=== PATIENT | female | born 1955 | race African-American/Black ===

== ENCOUNTER 2016-12-05 09:07 | Emergency (ER) | payer BC, OTHER ==
[~2016-12-05] VITALS: Ht 167.6 cm; Wt 134.6 kg
[~2016-12-05 09:07] MED LIST: BACT800T5 PO; CEPH500C3 PO; COLC1TAB7 PO
[2016-12-05 09:09] VITALS: BP 171/79; PULSE 68; RESP 18; TEMP 98.9; O2SAT 98
[2016-12-05] MEDS ORDERED: SODIUM CHLOR 0.9% 1000 ML INJ 1,000 ML IV SCH (09:21)
[2016-12-05 09:26] VITALS: O2SAT 98
[2016-12-05] MEDS ORDERED: DICYCLOMINE HCL 10 MG CAP PO ONE (09:30)
[2016-12-05] MEDS ORDERED: ONDANSETRON HCL 4 MG/2 ML VIAL IVP ONE (09:30)
[2016-12-05] MEDS ORDERED: SODIUM CHLOR 0.9% 1000 ML INJ 1,000 ML IV ONE (09:30)
[2016-12-05] MEDS ORDERED: SODIUM CHLORIDE 0.9% FLUSH 10 ML FLUSH IV FLUSH PRN (09:30)
[2016-12-05] MEDS ORDERED: FAMOTIDINE 20 MG/2 ML VIAL IV PUSH ONE (09:30)
--- NOTE | 2016-12-05 09:31 | PD ---
HPI Chief Complaint: GI Complaint Time Seen by Provider: 09:14 Travel History International Travel<30 days: No Contact w/Intl Traveler<30days: No Traveled to known affect area: No History of Present Illness HPI Patient 61-year-old female who presents to emergency room with complaints of nausea, vomiting and diarrhea with abdominal pain since Sunday night. She reports that she went out to dinner Sunday, reports that after dinner, she began to feel "bad." Reports that she has been feeling nauseous and has been vomiting and having diarrhea since Sunday. Reports that she has not been unable to keep anything down. Patient reports that she feels dehydrated and weak. Denies fever/chills. Denies any sick contacts. Denies any recent travels or trips. Denies taking any recent antibiotics. Denies dysuria, urinary urgency or frequency. No chest pain or shortness of breath. PFSH Past Medical History High Cholesterol: Yes Hypertension: Yes ?: Not Past Surgical History Other Surgery: Yes (fibroid resection) Family History Family History: Negative Social History Alcohol Use: No Tobacco Use: No Substance Use: No Allergies-Medications (Allergen,Severity, Reaction): Coded Allergies: codeine (Unverified Adverse Reaction, Intermediate, NAUSEA, 12/05/16) Reported Meds & Prescriptions Reported Meds & Active Scripts Active Zofran (Ondansetron HCl) 4 Mg Tab 4 Mg PO Q6HR PRN Reported Lovastatin 40 Mg Tab 40 Mg PO DAILY Triamterene-Hydrochlorothiazide 37.5-25 Mg Tab 1 Tab PO DAILY Review of Systems General / Constitutional: No: Fever, Chills Eyes: No: Visual changes HENT: No: Headaches Cardiovascular: No: Chest Pain or Discomfort, Palpitations, Irregular Rhythm, Tachycardia, Diaphoresis Respiratory: No: Cough, Shortness of Breath Gastrointestinal: Positive: Nausea, Vomiting, Diarrhea, Abdominal Pain, No: Constipation Genitourinary: No: Urgency, Dysuria Musculoskeletal: No: Pain Skin: No Rash Neurologic: No: Weakness Psychiatric: No: Depression Endocrine: No: Polydipsia Hematologic/Lymphatic: No: Easy Bruising Physical Exam Narrative GENERAL: Mild distress SKIN: Focused skin assessment warm/dry. HEAD: Atraumatic. Normocephalic. EYES: No injection or drainage. ENT: No nasal bleeding or discharge. Mucous membranes pink and tachy. NECK: Trachea midline. No JVD. CARDIOVASCULAR: Regular rate and rhythm. No murmur appreciated. RESPIRATORY: No accessory muscle use. Clear to auscultation. Breath sounds equal bilaterally. GASTROINTESTINAL: Abdomen soft, non-tender, nondistended. MUSCULOSKELETAL: No obvious deformities. No clubbing. No cyanosis. No edema. NEUROLOGICAL: Awake and alert. No obvious cranial nerve deficits. Motor grossly within normal limits. Normal speech. PSYCHIATRIC: Appropriate mood and affect; insight and judgment normal. Data Data Last Documented VS Vital Signs Date Time Temp Pulse Resp B/P (MAP) Pulse Ox O2 Delivery O2 Flow Rate FiO2 12/05/16 10:52 62 18 155/69 (97) 99 Room Air 12/05/16 09:09 98.9 Orders Orders Complete Blood Count With Diff (12/05/16:) Comprehensive Metabolic Panel (12/05/16:) Lipase (12/05/16:) Prothrombin Time / Inr (Pt) (12/05/16:) Act Partial Throm Time (Ptt) (12/05/16:) Urinalysis - C+S If Indicated (12/05/16:21) Ct Abd/Pel W/O Iv Contrast (12/05/16:21) Iv Access Insert/Monitor (12/05/16:21) Oximetry (12/05/16:) NPO (12/05/16:) Ondansetron Inj (Zofran Inj) (12/05/16 09:30) Sodium Chlor 0.9% 1000 Ml Inj (Ns 1000 M (12/05/16 09:21) Sodium Chloride 0.9% Flush (Ns Flush) (12/05/16:30) Famotidine Inj (Pepcid Inj) (12/05/16 09:30) Dicyclomine (Bentyl) (12/05/16 09:30) Sodium Chlor 0.9% 1000 Ml Inj (Ns 1000 M (12/05/16 09:30) Labs Laboratory Tests Test 12/05/16 10:11 White Blood Count 9.2 TH/MM3 Red Blood Count 5.28 MIL/MM3 Hemoglobin 14.0 GM/DL Hematocrit 42.4 % Mean Corpuscular Volume 80.4 FL Mean Corpuscular Hemoglobin 26.5 PG Mean Corpuscular Hemoglobin Concent 33.0 % Red Cell Distribution Width 14.0 % Platelet Count 252 TH/MM3 Mean Platelet Volume 9.6 FL Neutrophils (%) (Auto) 75.1 % Lymphocytes (%) (Auto) 14.6 % Monocytes (%) (Auto) 8.3 % Eosinophils (%) (Auto) 0.3 % Basophils (%) (Auto) 1.7 % Neutrophils # (Auto) 6.9 TH/MM3 Lymphocytes # (Auto) 1.3 TH/MM3 Monocytes # (Auto) 0.8 TH/MM3 Eosinophils # (Auto) 0.0 TH/MM3 Basophils # (Auto) 0.2 TH/MM3 CBC Comment DIFF FINAL Differential Comment Prothrombin Time 11.1 SEC Prothromb Time International Ratio 1.0 RATIO Activated Partial Thromboplast Time 27.5 SEC Urine Collection Type CLEAN CATCH Urine Color YELLOW Urine Turbidity CLEAR Urine pH 6.0 Urine Specific [place] 1.028 Urine Protein 100 mg/dL Urine Glucose (UA) NEG mg/dL Urine Ketones TRACE mg/dL Urine Occult Blood LARGE Urine Nitrite NEG Urine Bilirubin NEG Urine Leukocyte Esterase NEG Urine RBC 25-49 /hpf Urine WBC 3-5 /hpf Urine Squamous Epithelial Cells > 8 /hpf Urine Bacteria FEW /hpf Urine Mucus FEW /lpf Microscopic Urinalysis Comment CULT NOT INDICATED Urine Collection Time 10:11 Blood Urea Nitrogen 11 MG/DL Creatinine 0.79 MG/DL Random Glucose 120 MG/DL Total Protein 8.9 GM/DL Albumin 3.2 GM/DL Calcium Level 9.4 MG/DL Alkaline Phosphatase 108 U/L Aspartate Amino Transf (AST/SGOT) 29 U/L Alanine Aminotransferase (ALT/SGPT) 22 U/L Total Bilirubin 0.8 MG/DL Sodium Level 133 MEQ/L Potassium Level 4.4 MEQ/L Chloride Level 97 MEQ/L Carbon Dioxide Level 27.8 MEQ/L Anion Gap 8 MEQ/L Estimat Glomerular Filtration Rate 89 ML/MIN Lipase 125 U/L [facility] Medical Decision Making Medical Screen Exam Complete: Yes Emergency Medical Condition: Yes Medical Record Reviewed: Yes Interpretation(s) Vital Signs Date Time Temp Pulse Resp B/P (MAP) Pulse Ox O2 Delivery O2 Flow Rate FiO2 12/05/16 09:09 98.9 68 18 171/79 (109 98 Differential Diagnosis Differential includes gastritis, gastroenteritis, appendicitis, cholecystitis, electrolyte abnormality Narrative Course 61-year-old female who presents to emergency with complaints of abdominal pain nausea, vomiting and diarrhea since Sunday (4 days). Patient has not been able to keep down any fluids or food for the past 4 days, reports feeling generalized weakness. Vital Signs Date Time Temp Pulse Resp B/P (MAP) Pulse Ox O2 Delivery O2 Flow Rate FiO2 12/05/16 09:09 98.9 68 18 171/79 (109) 98 An IV line was established, IVF as well as antiemetics ordered. CBC, CMP, LFT' s as well as Ct of abdomen/pelvis ordered. Plan to monitor on a international affairs vice president Laboratory Tests Test 12/05/16 10:11 White Blood Count 9.2 TH/MM3 (4.0-11.0) Red Blood Count 5.28 MIL/MM3 (4.00-5.30) Hemoglobin 14.0 GM/DL (11.6-15.3) Hematocrit 42.4 % (35.0-46.0) Mean Corpuscular Volume 80.4 FL (80.0-100.0) Mean Corpuscular Hemoglobin 26.5 PG (27.0-34.0) Mean Corpuscular Hemoglobin Concent 33.0 % (32.0-36.0) Red Cell Distribution Width 14.0 % (11.6-17.2) Platelet Count 252 TH/MM3 (150-450) Mean Platelet Volume 9.6 FL (7.0-11.0) Neutrophils (%) (Auto) 75.1 % (16.0-70.0) Lymphocytes (%) (Auto) 14.6 % (9.0-44.0) Monocytes (%) (Auto) 8.3 % (0.0-8.0) Eosinophils (%) (Auto) 0.3 % (0.0-4.0) Basophils (%) (Auto) 1.7 % (0.0-2.0) Neutrophils # (Auto) 6.9 TH/MM3 (1.8-7.7) Lymphocytes # (Auto) 1.3 TH/MM3 (1.0-4.8) Monocytes # (Auto) 0.8 TH/MM3 (0-0.9) Eosinophils # (Auto) 0.0 TH/MM3 (0-0.4) Basophils # (Auto) 0.2 TH/MM3 (0-0.2) CBC Comment DIFF FINAL Differential Comment Prothrombin Time 11.1 SEC (9.8-11.6) Prothromb Time International Ratio 1.0 RATIO Activated Partial Thromboplast Time 27.5 SEC (24.3-30.1) Urine Collection Type CLEAN CATCH Urine Color YELLOW (YELLW/STRAW) Urine Turbidity CLEAR (CLEAR) Urine pH 6.0 (5.0-8.5) Urine Specific [place] 1.028 (1.002-1.035) Urine Protein 100 mg/dL (NEG-TRACE) Urine Glucose (UA) NEG mg/dL (NEG) Urine Ketones TRACE mg/dL (NEG) Urine Occult Blood LARGE (NEG) Urine Nitrite NEG (NEG) Urine Bilirubin NEG (NEG) Urine Leukocyte Esterase NEG (NEG) Urine RBC 25-49 /hpf (0-3) Urine WBC 3-5 /hpf (0-5) Urine Squamous Epithelial Cells > 8 /hpf (0-5) Urine Bacteria FEW /hpf (NONE) Urine Mucus FEW /lpf (OCC) Microscopic Urinalysis Comment CULT NOT INDICATED Urine Collection Time 10:11 Blood Urea Nitrogen 11 MG/DL (7-18) Creatinine 0.79 MG/DL (0.50-1.00) Random Glucose 120 MG/DL (74-106) Total Protein 8.9 GM/DL (6.4-8.2) Albumin 3.2 GM/DL (3.4-5.0) Calcium Level 9.4 MG/DL (8.5-10.1) Alkaline Phosphatase 108 U/L (45-117) Aspartate Amino Transf (AST/SGOT) 29 U/L (15-37) Alanine Aminotransferase (ALT/SGPT) 22 U/L (10-53) Total Bilirubin 0.8 MG/DL (0.2-1.0) Sodium Level 133 MEQ/L (136-145) Potassium Level 4.4 MEQ/L (3.5-5.1) Chloride Level 97 MEQ/L (98-107) Carbon Dioxide Level 27.8 MEQ/L (21.0-32.0) Anion Gap 8 MEQ/L (5-15) Estimat Glomerular Filtration Rate 89 ML/MIN (>89) Lipase 125 U/L (73-393) CT of the abdomen pelvis with no acute findings. A copy of her ct report was given to her as she will need to follow up with all incidental findings. Patient was hydrated with IV fluids, was given antiemetics, patient is feeling better at this time. Reports "I feel better than I have in days." Abdomen is soft, nt/nd, no peritoneal signs. Plan with most likely gastroenteritis. Discussed need for hydration. Will write script for antiemetics. Patient will follow-up with primary care doctor, signs and symptoms of acute abdomen was reviewed patient in detail. She will return to emergency room as needed. Patient thankful for care. Diagnosis Primary Impression: Nausea vomiting and diarrhea Additional Impression: Abdominal pain Patient Instructions: General Instructions Departure Forms: Tests/Procedures, Work Release Enter return to work date: Dec 07, 2016 Additional Instructions: Please follow up with your primary care doctor Drink plenty of fluids Return to ER if symptoms worsen or progress Return to ER as needed Please bring a copy of your radiology report to your doctor's office for follow up. Med/Other Pt SpecificInfo: Prescription(s) given Scripts Dicyclomine (Bentyl) 10 Mg Cap 10 MG PO TID Y for Bowel Management for 7 Days, CAP 0 Refills Prov: Cathy Fisher DO 12/05/16 Ondansetron (Zofran) 4 Mg Tab 4 MG PO Q6HR Y for NAUSEA OR VOMITING, #20 TAB 0 Refills Prov: Cathy Fisher DO 12/05/16 Disposition: 01 DISCHARGE HOME Condition: Stable Cathy Fisher DO Dec 05, 2016 09:31
[2016-12-05] MEDS ORDERED: TRIA37.5 PO (09:33)
[2016-12-05] MEDS ORDERED: LOVA40TA PO (09:33)
[2016-12-05 10:22] LABS: BLOOD, URINE LARGE (NEG); GLUCOSE,URINE NEG (NEG); KETONE, URINE TRACE mg/dL (NEG); NITRITE,URINE NEG (NEG)
[2016-12-05 10:23] LABS: AUTOMATED NEUTROPHIL # 6.9 TH/MM3 (1.8-7.7); BASOPHIL # 0.2 TH/MM3 (0-0.2); BASOPHIL % 1.7 % (0.0-2.0); EOSINOPHIL % 0.3 % (0.0-4.0); HEMATOCRIT 42.4 % (35.0-46.0); HEMO FLAGS DIFF FINAL; LYMPH % 14.6 % (9.0-44.0); LYMPHOCYTE # 1.3 TH/MM3 (1.0-4.8); MEAN CELL VOLUME 80.4 FL (80.0-100.0); MEAN CORPUSCULAR HEMOGLOBIN 26.5 PG (27.0-34.0); MONO % 8.3 % (0.0-8.0); NEUT % 75.1 % (16.0-70.0); PLATELET COUNT 252 TH/MM3 (150-450); RED BLOOD COUNT 5.28 MIL/MM3 (4.00-5.30); WHITE BLOOD COUNT 9.2 TH/MM3 (4.0-11.0)
[2016-12-05 10:27] LABS: METHOD OF COLLECTION CLEAN CATCH; MUCUS URINE FEW /lpf (OCC); URINE COLOR YELLOW (YELLW/STRAW)
[2016-12-05 10:28] LABS: BACTERIA, URINE FEW /hpf; COMMENT (UR) CULT NOT INDICATED; CULTURE IF INDICATED CULT NOT INDICATED; SQUAMOUS EPITHELIAL CELL URINE > 8 /hpf (0-5)
[2016-12-05 10:45] LABS: CHLORIDE 97 MEQ/L (98-107); POTASSIUM 4.4 MEQ/L (3.5-5.1); SODIUM (NA) 133 MEQ/L (136-145)
[2016-12-05 10:49] LABS: APTT (PATIENT) 27.5 SEC (24.3-30.1); PROTHROMBIN TIME - PATIENT 11.1 SEC (9.8-11.6)
[2016-12-05 10:50] LABS: ANION GAP 8 MEQ/L (5-15); BICARBONATE 27.8 MEQ/L (21.0-32.0); BLOOD UREA NITROGEN 11 MG/DL (7-18)
[2016-12-05 10:52] VITALS: BP 155/69; PULSE 62; RESP 18; O2SAT 99
[2016-12-05 10:52] LABS: ALT (GPT) 22 U/L (10-53)
[2016-12-05 10:53] LABS: AST (GOT) 29 U/L (15-37); GLOMERULAR FILTRATION RATE 89 ML/MIN (>89)
[2016-12-05 10:54] LABS: TOTAL BILIRUBIN ADULT 0.8 MG/DL (0.2-1.0)
[2016-12-05 10:55] LABS: ALKALINE PHOSPHATASE 108 U/L (45-117)
--- NOTE | 2016-12-05 10:55 | RADRPT ---
EXAM DATE/TIME: 12/05/2016 09:38 [place] COMPARISON: No previous studies available for comparison. INDICATIONS : Weakness and vomiting. ORAL CONTRAST: No oral contrast ingested. RADIATION DOSE: 24.57 CTDIvol (mGy) MEDICAL HISTORY : Hypercholesterolemia. Hypertension. SURGICAL HISTORY : None. ENCOUNTER: Initial ACUITY: 4 - 6 days PAIN SCALE: 0/10 LOCATION: abdomen TECHNIQUE: Volumetric scanning of the abdomen and pelvis was performed. Using automated exposure control and ad justment of the mA and/or kV according to patient size, radiation dose was kept as low as reasonably achievable to obtain optimal diagnostic quality images. DICOM format image data is available electro nically for review and comparison. FINDINGS: The limited portion of the lung base visualized is clear. The appearance of the liver, spleen, pancreas, adrenal glands and kidneys is within normal limits. The abdominal aorta is normal in caliber. There is no retroperitoneal lymphadenopathy. The visualized loops of small and large bowel in the upper abdomen are normal in appearance. The appendix is visualized and is normal in appearance. There is no free fluid within the pelvis. No iliac or inguinal adenopathy is seen. The uterus and ova vishnu are intact. The visualized bony structures demonstrate degenerative changes in the lower lumbar spine and sacroil iac joints but are otherwise intact. CONCLUSION: 1. No findings to indicate bowel obstruction are seen. 2. Degenerative changes in the lower lumbar spine and sacroiliac joints bilaterally. Omar Reich MD on December 05, 2016 at 10:36 Board Certified Radiologist. This report was verified electronically.
[2016-12-05] MEDS ORDERED: ZOFR4TAB PO (11:04)
[2016-12-05] MEDS ORDERED: DICY10 PO (11:31)
[2016-12-05 12:38] VITALS: BP 163/76
== END 2016-12-05 12:44 | disposition home or self-care (01) ==
LOC: PHED 09:07
DX: R11.2 Nausea with vomiting, unspecified (principal); R19.7 Diarrhea, unspecified; E86.0 Dehydration; I10 Essential (primary) hypertension; E78.5 Hyperlipidemia, unspecified
CPT/HCPCS: 74176; 80053; 81001; 83690; 85025; 85610; 85730; 96361; 96374; 96375; 99285; J2405; J7030